=== PATIENT | male | born 1975 | race Caucasian/White ===

== ENCOUNTER → 2021-07-20 09:39 | Outpatient (CLI) | payer BC, SELFPAY ==
--- NOTE | 2021-07-20 | DI.MRI.S_ITS ---
PROCEDURE: MR BRAIN (PITUITARY) WWO CON INDICATIONS: Hypopituitarism TECHNIQUE: Noncontrast sagittal and axial FLAIR, axial gradient echo, axial diffusion and ADC through the brain. Thin-slice sagittal and coronal T1 spin echo, coronal T2 fast spin echo through the pituitary. After the administration contrast, optional dynamic coronal T1 spin echo, thin-slice coronal and sagittal T1 spin echo images through the pituitary fossa; axial T1 spin echo with fat saturation through the brain. COMPARISON: None. FINDINGS: Image quality: Excellent. Pituitary Gland: The pituitary gland demonstrates normal signal and bulk. On the postcontrast imaging, no masses or abnormally enhancing areas are seen. The pituitary stalk and infundibulum have an unremarkable appearance. A normal appearing pituitary bright spot is seen posteriorly on the precontrast sagittal T1-weighted images. The optic chiasm and the ventral forebrain have an unremarkable appearance. CSF Spaces: Ventricles are normal in size and shape. Basal cisterns are patent. No extra-axial fluid collections. Brain: No intracranial bleeds or mass effects. No abnormal intracranial enhancement. Walsh-white matter interface is intact. Diffusion weighted images demonstrate no acute ischemic insults. Brainstem is normal. Normal intravascular flow voids are present. Skull and face: Calvarial marrow is normal in signal. Orbits appear normal. Sinuses: No significant paranasal sinus disease is seen. Moderate fluid can be seen within the mastoid air cells, left worse than right. IMPRESSION: Unremarkable pituitary, without a focal pituitary lesion to suggest pituitary microadenoma. Dictated by: Vince Da Silva M.D. on 07/20/2021 at 10:55 Approved by: Vince Da Silva M.D. on 07/20/2021 at 10:58
== END ==
PROVIDERS: Referring Provider Physician Assistant; Visit Provider Physician Assistant
DX: E29.1 Testicular hypofunction (principal); E23.0 Hypopituitarism
CPT/HCPCS: 70553

== ENCOUNTER → 2022-05-10 09:38 | Outpatient (CLI) | payer BC, SELFPAY ==
--- NOTE | 2022-05-10 09:41 | DI.RAD.S_ITS ---
PROCEDURE: FL BARIUM SWALLOW INDICATIONS: Dysphagia, pharyngoesophageal phase COMPARISON: None. FINDINGS: Function: There is normal esophageal peristalsis. No elicited gastroesophageal reflux. There is normal transit of a calibrated barium tablet through the esophagus into the stomach. Morphology: Air-contrast images demonstrate normal mucosal morphology. Single contrast views show no esophageal strictures, extrinsic mass effects, or diverticula. Limited images of the stomach demonstrate normal appearance. IMPRESSION: No significant abnormality. Dictated by: Yazan Nina M.D. on 05/10/2022 at 10:33 Approved by: Yazan Nina M.D. on 05/10/2022 at 10:34
== END ==
PROVIDERS: Referring Provider Otolaryngology; Visit Provider Otolaryngology
DX: R13.14 Dysphagia, pharyngoesophageal phase (principal)
CPT/HCPCS: 74220

== ENCOUNTER 2022-06-08 06:37 | Day surgery (SDC) | payer BC, SELFPAY ==
--- NOTE | 2022-06-08 | PATH_ITS ---
[facility] Accession Number: [id number] No. of containers..01 Tissue . 01 Material submitted: . colon - TRANSVERSE COLON POLYP . 01 Diagnosis: Transverse Colon, Polyp, Biopsy: Tubular adenoma. MRV 06/10/2022 1800 Local . 01 Electronically signed: . Alyson Niño MD, Pathologist NPI- [id number] . 01 Gross description: . TRANSVERSE COLON POLYP: Received in formalin are multiple fragment(s) of cross, soft tissue measuring 0.1 x 0.1 x 0.1 cm to 0.5 x 0.4 x 0.3 cm submitted entirely in 1 cassette(s) /JESSIKA 06/09/2022 1914 Local . 01 Pathologist provided ICD-10: D12.3 . 01 CPT . 326017 Specimen Comment: A courtesy copy of this report has been sent to [phone] Performed at: 01 [facility] [address] [place] [address], [place], [place] [id number] MD Shayan Narayanan MD Phone: [phone]
[2022-06-08 06:54] VITALS: BP 128/85; PULSE 89; RESP 20; TEMP 36.1; O2SAT 97; BMI 39.0
[2022-06-08] MEDS: LACTATED RINGERS 1,000 ML 200 ML IV (07:02)
--- NOTE | 2022-06-08 07:44 | PM.HP.1 ---
History of Present Illness History of Present Illness Date Patient Seen: 06/08/22 Time Patient Seen: 07:44 Chief complaint: Colonoscopy Narrative: The patient presents for colorectal screening. They have never had any previous examination for such. No personal or family history of colon cancer. On further history denies any recent gastrointestinal symptoms. No nausea, vomiting, abdominal pain, loss of appetite, unexplained weight loss, change in bowel habits, or blood per rectum. [facility] Social History household members: spouse Smoking Status: Former smoker Meds Home Medications and Allergies Home Medications Medication Instructions Recorded Confirmed Type bupropion HCl 150 mg 24 hr tablet, 150 mg PO QAM 06/08/22 06/08/22 History extended release oxybutynin chloride 5 mg tablet 5 mg PO DAILY 06/08/22 06/08/22 History Allergies Allergy/AdvReac Type Severity Reaction Status Date / Time No Known Drug Allergies Allergy Verified 06/08/22 06:50 Exam Vital Signs (past 8 hours): - 06/08/22 06:54 Temperature 97 F L Pulse Rate 89 Respiratory Rate 20 Blood Pressure 128/85 Pulse Oximetry 97 Oxygen Delivery Method Room Air Oxygen Delivery Method Room Air Narrative Exam Narrative: General adult man alert oriented no acute distress Abdomen soft nondistended Assessment & Plan Assessment & Plan narrative: The patient requires colorectal screening and colonoscopy is recommended. Technical details were discussed. Risks, benefits, alternatives explained. Risks including but not limited to myocardial infarction, aspiration, bleeding, pain, missed lesion, incomplete examination, need for further radiographic studies, colonic perforation, and need for major abdominal surgery were discussed. All questions were answered to their satisfaction, and they are in agreement with this plan.
[2022-06-08 08:09] VITALS: BP 127/89; PULSE 90; RESP 14; TEMP 37.1; O2SAT 97
--- NOTE | 2022-06-08 08:11 | PM.OP.COLON ---
Operative Date/Time/Diagnoses Date of procedure: 06/08/22 Time of procedure: 08:11 Pre-op diagnosis: Colorectal screening Post-op diagnosis: other (Colonic polyp x1) Procedure & Clinicians Study performed: Colonoscopy and polypectomy Same procedure as scheduled: Yes Indications: Colorectal screening Surgeon: Damaso Frost Procedure Notes Procedure in detail: The history and physical was performed/updated and the patient is ASA class is 2. The procedure was discussed in detail with the patient. Potential risks complications including infection, bleeding, missed diagnosis, perforation, need for surgery, and were explained. Their questions were answered and informed consent was obtained. Patient was brought to the procedure room and placed standard monitoring equipment. The patient's vital signs were monitored continuously throughout the entire procedure. Prior to starting time-out was performed. The patient was placed in the left lateral recumbent position. Procedural sedation was administered by anesthesia. Examination began with a thorough inspection of the perianal area there was no evidence of fissures, fistulae, external hemorrhoids or cutaneous malignancy. The colonoscopy scope was then placed into the anal canal and was advanced to the cecum, which was identified by the ileocecal valve, the appendiceal orifice and the confluence of the taenia. The scope was then slowly withdrawn examining colon thoroughly in all directions, irrigating it of any residual stool. Within the transverse colon there is a 1 cm raised polyp which was removed with cold snare in its entirety. On retroflexion within the rectum grade 1 hemorrhoids are observed. The patient tolerated the procedure well. They will be discharged once criteria are met. The prep was of good/excellent quality. The withdrawl time was 6 minutes. Specimen(s): other (Transverse colon polyp) Impression: Colonic polyp x1 Post-procedure Plan for aftercare: Colonoscopy follow-up is dependent on pathology findings Disposition: same day surgery
[2022-06-08 08:14] VITALS: BP 126/92; PULSE 85; RESP 16; O2SAT 98
[2022-06-08 08:19] VITALS: BP 126/91; PULSE 77; RESP 16; O2SAT 98
--- NOTE | 2022-06-08 08:20 | SUR.PHASEI ---
Pt awake and alert, talking and joking around. Denies pain and nausea. No complaints voiced. No distress noted.
[2022-06-08 08:24] VITALS: BP 125/90; PULSE 78; RESP 16; TEMP 36.2; O2SAT 97
[2022-06-08 08:30] VITALS: BP 125/88; PULSE 75; RESP 16; O2SAT 97
--- NOTE | 2022-06-08 08:39 | SUR.PHASEII ---
pt states he is ready to go and understands discharge instructions. Pt denies any complaints.
== END 2022-06-08 08:40 | disposition home or self-care (01) ==
PROVIDERS: PCP Physician Assistant; Referring Provider Surgery; Visit Provider Surgery
PROC: 0DJD8ZZ Inspection of Lower Intestinal Tract, Via Natural or Artificial Opening Endoscopic (ICD-10-PCS; CPT 45378; principal; 2022-06-08 07:45)
DX: Z12.11 Encounter for screening for malignant neoplasm of colon (principal); K64.0 First degree hemorrhoids; D12.3 Benign neoplasm of transverse colon
CPT/HCPCS: 45385; J2250; J2704; J3010

== ENCOUNTER → 2023-05-28 11:16 | Outpatient (CLI) | payer BC, SELFPAY ==
--- NOTE | 2023-05-28 | DI.MRI.S_ITS ---
PROCEDURE: MR LUMBAR SPINE WO CON INDICATIONS: Sciatica, left side TECHNIQUE: Noncontrast sagittal T1 spin echo and T2 fast echo, sagittal STIR, and T2 fast spin echo through the lumbar spine. In cases with scoliosis, additional coronal T2 fast spin echo may be performed. COMPARISON: None. FINDINGS: Image quality: Excellent. Alignment and Curvature: There is trace retrolisthesis of L5 on S1. Bone Marrow: Marrow is of normal overall signal. No acute vertebral body compression fractures. Spinal Cord: Conus medullaris terminates at the L1-2 level. Visualized cord demonstrates normal signal and size. Paraspinous Soft Tissues: No paravertebral masses. Discs: Multilevel overall minimal disc desiccation although [id number] L5-S1. T12-L1: Minimal disc bulge without spinal stenosis or foraminal narrowing. L1-L2: Minimal disc bulge without spinal stenosis or foraminal narrowing. Mild epidural lipomatosis. L2-L3: Mild disc bulge with minimal canal narrowing. Facet and ligamentum flavum hypertrophy are present. Minimal epidural lipomatosis. L3-L4: Minimal disc bulge with minimal canal narrowing. Minimal left foraminal narrowing with facet and ligamentum flavum hypertrophy. L4-L5: Mild disc bulge with mild spinal stenosis. No foraminal narrowing. Facet and ligamentum flavum hypertrophy as well as epidural lipomatosis. L5-S1: Mild broad-based disc bulge asymmetrically left lateral/foraminal component. There is moderate narrowing through the left subarticular recess with overall minimal foraminal narrowing. Similar appearance is present on the right. IMPRESSION: Early degenerative changes most prominent L5-S1. Broad-based disc bulge demonstrates bilateral narrowing through the subarticular recess bilaterally. No nerve root flattening. Dictated by: Evette Morataya M.D. on 05/30/2023 at 12:30 Approved by: Evette Morataya M.D. on 05/30/2023 at 12:52
== END ==
LOC: MRI 11:16
PROVIDERS: PCP Physician Assistant; Referring Provider Physician Assistant; Visit Provider Physician Assistant
DX: M51.16 Intervertebral disc disorders with radiculopathy, lumbar region (principal); M51.17 Intervertebral disc disorders with radiculopathy, lumbosacral region; M47.26 Other spondylosis with radiculopathy, lumbar region
CPT/HCPCS: 72148

== ENCOUNTER 2023-09-18 11:30 | Emergency (ER) | payer BC, SELFPAY ==
[2023-09-18 11:37] VITALS: BP 168/102; PULSE 100; RESP 18; TEMP 36.7; O2SAT 99; BMI 36.2
--- NOTE | 2023-09-18 11:46 | ED.NECK ---
HPI - Neck Pain/Injury General Chief Complaint: Neck Pain/Injury Stated Complaint: Pulled muscle left shoulder/neck Time Seen by Provider: 09/18/23 11:36 Mode of arrival: Ambulatory History of Present Illness HPI Narrative: Patient is a 48-year-old male without significant past medical history presenting today with left shoulder pain. He reports it has been ongoing for the last 6 days it started when he lifted a 50 lb suitcase. Holding arm in position of comfort. He has been taking meloxicam and ibuprofen without significant relief he has no numbness tingling or weakness. He does have decreased range of motion definitely reproducible with palpation. He reports that he is pain from the back of his neck down into his shoulder blade. No chest pain shortness of breath or weakness. Been trying ice and heat. He did not fall no other symptoms. Related Data Home Medications Medication Instructions Recorded Confirmed bupropion HCl 150 mg 24 hr tablet, 150 mg PO QAM 06/08/22 06/08/22 extended release oxybutynin chloride 5 mg tablet 5 mg PO DAILY 06/08/22 06/08/22 Previous Rx's Medication Instructions Recorded diazepam 5 mg tablet (Valium) 5 mg PO Q12HR PRN muscle spasm #10 09/18/23 tabs hydrocodone 5 mg-acetaminophen 325 1 tab PO Q6H PRN pain #10 tabs 09/18/23 mg tablet Allergies Allergy/AdvReac Type Severity Reaction Status Date / Time No Known Drug Allergies Allergy Verified 06/08/22 06:50 Patient History Social History household members: spouse Smoking Status: Former smoker Smoking Status: Former smoker alcohol intake frequency: holidays/special occasions only Substance Use Type: does not use Exam Initial Vital Signs Initial Vital Signs: Vital Signs Temperature 98.1 F 09/18/23 11:37 Pulse Rate 100 H 09/18/23 11:37 Respiratory Rate 18 09/18/23 11:37 Blood Pressure 168/102 H 09/18/23 11:37 Pulse Oximetry 99 09/18/23 11:37 Oxygen Delivery Method Room Air 09/18/23 11:37 GENERAL: Well-appearing, well-nourished and in no acute distress. CARDIOVASCULAR: peripheral pulses in tact, cap refill <2 sec RESPIRATORY: No respiratory distress, speaks in full sentences without difficulty EXTREMITIES: Normal range of motion, no clubbing or edema. Neurovascularly intact Left trapezius muscle spasm definitely appreciated tender all along trapezius he is actually able to abduct his arm and shoulder completely but with a lot harder than the right neurovascularly he is intact NEUROLOGICAL: Cranial nerves II through XII grossly intact. Normal gait and speech. SKIN: Warm, dry, no petechiae, no rashes or lesions. Course Orders Ordered: Discontinued Medications Diazepam (Diazepam 5 Mg Tablet) 5 mg PO NOW ONE Stop: 09/18/23 11:56 Last Admin: 09/18/23 12:25 Dose: 5 mg Documented By: JUVE Ketorolac Tromethamine (Ketorolac 30 Mg/Ml Vial) 30 mg IM NOW ONE Stop: 09/18/23 11:56 Last Admin: 09/18/23 12:25 Dose: 30 mg Documented By: JUVE Vital Signs Vital signs: Vital Signs - 8 hr 09/18/23 11:37 09/18/23 12:23 Temperature 98.1 F Pulse Rate 100 H 88 Respiratory Rate 18 Blood Pressure 168/102 H 132/85 Pulse Oximetry 99 98 Oxygen Delivery Method Room Air Room Air MDM - Neck Pain/Injury MDM Narrative Medical decision making narrative: Patient 48-year-old male without significant past medical history presenting today with left shoulder pain. It is musculoskeletal in nature reproducible spasm is appreciated in the trapezius muscle. He is given Toradol and Valium here in the ED. Recommended supportive care along with pain control. Discharge Plan Departure Patient Disposition: Home Clinical Impression: Muscle spasm Instructions: DI for Muscle Spasm Activity Restrictions/Additional Instructions: *You have been diagnosed with muscle spasm *What to do: At this time recommend he increasing activity as tolerated recommend stretching light massage may try [id number] CBD cream or arnica *Continue to take medications as directed Motrin 600 mg every 6 hours OR meloxicam 15 mg once a day [facility] 1 tablet every 6 hours if needed for zidb-dw-zajkhqqs pain Valium 5 mg every 12 hours if needed for muscle spasm *Follow up with your primary care provider in 2-3 days or call [phone] *Return to ER if you should have increasing weakness numbness [or] any new, worsening or concerning symptoms CONTROLLED SUBSTANCE DISCHARGE (Narcotoic/benzodiazepine/Flexeril/Phenergan) 1. You have been prescribed narcotic medications, it does have acetaminophen/Tylenol/paracetamol in it, DO NOT TAKE MORE THAN 4,00mg in 24 hours of Tylenol. TRAMADOL DOES NOT CONTAIN TYLENOL 2. Please understand that we cannot provide further refills of narcotics, benzodiazepines or controlled substances through the ED and her pain management will need to be through your provider. 3. While on these medications you cannot drive or operate heavy machinery. 4. You cannot sign legal documents or perform any duties such as this. 5. As long as you're taking opiate pain medications he should also be taking a stool softener such as Colace, Dulcolax, MiraLAX or prune juice, to help avoid constipation. Prescriptions: New hydrocodone-acetaminophen 5-325 mg tablet 1 tab PO Q6H PRN (Reason: pain) Qty: 10 0RF diazepam [Valium] 5 mg tablet 5 mg PO Q12HR PRN (Reason: muscle spasm) Qty: 10 0RF No Action oxybutynin chloride 5 mg Tablet 5 mg PO DAILY bupropion HCl 150 mg Tablet Extended Release 24 Hr 150 mg PO QAM Referrals: Nery Gillespie PA-C [Primary Care Provider] - Stand Alone Forms: Patient Portal/API
[2023-09-18 12:23] VITALS: BP 132/85; PULSE 88; O2SAT 98
[2023-09-18] MEDS: diazePAM 5 MG TABLET PO (12:25)
[2023-09-18] MEDS: KETOROLAC 30 MG/ML VIAL IM (12:25)
--- NOTE | 2023-09-18 12:37 | PC.NURSE ---
First time meeting pt is at time of d/c. Refer to Dr. Chen notes for assessment.
== END 2023-09-18 12:38 | disposition home or self-care (01) ==
PROVIDERS: Emergency Provider Emergency Medicine; PCP Physician Assistant
DX: M62.830 Muscle spasm of back (principal); M54.2 Cervicalgia
CPT/HCPCS: 96372; 99283; J1885

== ENCOUNTER 2023-09-25 10:10 | Emergency (ER) | payer BC, SELFPAY ==
[2023-09-25 10:21] VITALS: BP 157/103; PULSE 87; RESP 16; TEMP 37; O2SAT 98; BMI 36.2
--- NOTE | 2023-09-25 11:53 | ED_ITS ---
HPI - Extremity Injury (Upper) General Chief Complaint: Extremity Injury, Upper Stated Complaint: Upper left shoulder pain Time Seen by Provider: 09/25/23 11:35 Source: patient Mode of arrival: Ambulatory History of Present Illness HPI narrative: Patient is a 48-year-old male without significant past medical history presenting today with ongoing left shoulder pain. I saw and evaluated him 1 week ago with left shoulder trapezius pain. He was given Valium and [place] he now can only find a position with his arm above his head grabbing a bar that is comfortable. He has severe sharp stabbing pain from his neck down to his upper arm. He reports that his hand is weaker. He says none of the medications are helping he is left-hand dominant and no dropping things Related Data Home Medications Medication Instructions Recorded Confirmed bupropion HCl 150 mg 24 hr tablet, 150 mg PO QAM 06/08/22 06/08/22 extended release oxybutynin chloride 5 mg tablet 5 mg PO DAILY 06/08/22 06/08/22 Previous Rx's Medication Instructions Recorded diazepam 5 mg tablet (Valium) 5 mg PO Q12HR PRN muscle spasm #10 09/18/23 tabs hydrocodone 5 mg-acetaminophen 325 1 tab PO Q6H PRN pain #10 tabs 09/18/23 mg tablet gabapentin 300 mg capsule 300 mg PO BEDTIME #30 caps 09/25/23 oxycodone 5 mg tablet 5 mg PO Q6H PRN pain #14 tabs 09/25/23 prednisone 20 mg tablet 40 mg (2 x 20 mg) PO DAILY #10 tabs 09/25/23 Allergies Allergy/AdvReac Type Severity Reaction Status Date / Time No Known Drug Allergies Allergy Verified 06/08/22 06:50 Patient History Social History household members: spouse Smoking Status: Former smoker Smoking Status: Former smoker alcohol intake frequency: holidays/special occasions only Substance Use Type: does not use Exam Initial Vital Signs Initial Vital Signs: Vital Signs Temperature 98.6 F 09/25/23 10:21 Pulse Rate 87 09/25/23 10:21 Respiratory Rate 16 09/25/23 10:21 Blood Pressure 157/103 H 09/25/23 10:21 Pulse Oximetry 98 09/25/23 10:21 Oxygen Delivery Method Room Air 09/25/23 10:21 GENERAL: Alert 48-year-old male appears in severe distress CARDIOVASCULAR: peripheral pulses in tact, cap refill <2 sec RESPIRATORY: No respiratory distress, speaks in full sentences without difficulty EXTREMITIES: Normal range of motion, no clubbing or edema. Neurovascularly intact Sitting with left arm above head grabbing top of bed. does seem e he does have mild decreased precast molder strength in left head compared to right, sensation intact over deltoid bilaterally distal radial pulse intact NEUROLOGICAL: Cranial nerves II through XII grossly intact. Normal gait and speech. SKIN: Warm, dry, no petechiae, no rashes or lesions. Course Orders Ordered: ED Orders 09/25/23 11:59 CT cervical spine wo con Stat XR shoulder LT min 2V Stat Discontinued Medications Hydromorphone HCl (Hydromorphone 1 Mg Inj) 1 mg SUBCUT NOW ONE Stop: 09/25/23 12:00 Last Admin: 09/25/23 12:17 Dose: 1 mg Documented By: QUEENIE Vital Signs Vital signs: Vital Signs - 8 hr 09/25/23 10:21 09/25/23 13:14 09/25/23 13:14 Temperature 98.6 F Pulse Rate 87 84 Respiratory Rate 16 Blood Pressure 157/103 H 138/91 H Pulse Oximetry 98 96 Oxygen Delivery Method Room Air MDM - Extremity Injury (Upper) Imaging Data CT - cervical spine: Radiologist's Impression: PROCEDURE: CT CERVICAL SPINE WO CON INDICATIONS: left side neck pain with tingling TECHNIQUE: Noncontrast 3 mm thick sections acquired from the skull base to the T4 level. Sagittal and coronal reformats were then constructed. For radiation dose reduction, the following was used: automated exposure control, adjustment of mA and/or kV according to patient size. COMPARISON: None. FINDINGS: Image quality: Excellent. Bones: No fractures or dislocations. Visualized superior ribs are intact. Degenerative changes at C4-C6 are mild with disc space narrowing and osteophytosis. Soft tissues: Prevertebral soft tissues are normal in thickness. No paravertebral hematomas. No apical pneumothoraces. IMPRESSION: No displaced fracture or traumatic subluxation. Dictated by: Grace Luz M.D. on 09/25/2023 at 11:16 Approved by: Grace Luz M.D. on 09/25/2023 at 11:19 Extremity x-ray #1: Radiologist's Impression: PROCEDURE: XR SHOULDER LT MIN 2V INDICATIONS: pain injury TECHNIQUE: 3 views of the shoulder were acquired. COMPARISON: None. FINDINGS: Bones: No fractures or dislocations. No suspicious bony lesions. Visualized ribs appear intact. Soft tissues: No suspicious soft tissue calcifications. IMPRESSION: No acute bony abnormality. Dictated by: Grace Luz M.D. on 09/25/2023 at 11:41 Approved by: Grace Luz M.D. on 09/25/2023 at 11:41 [facility] Narrative Medical decision making narrative: 48-year-old male presenting today with ongoing left shoulder pain numbness tingling is slight left hand weakness. On exam he actually does have mild weakness in his left hand he is left-hand dominant. Imaging has been reviewed he has normal cervical spine is normal shoulder x-ray. He got 1 mg of Dilaudid subcu he is overall feeling significantly better able to put his arm down looks more comfortable. I suspect still muscle spasm and possible nerve impingement however I do recommend outpatient MRI if he continues to have problems Discharge Plan Departure Patient Disposition: Home Clinical Impression: Muscle spasm Instructions: DI for Cervical Radiculopathy, DI for Muscle Spasm Activity Restrictions/Additional Instructions: *You have been diagnosed with spasm versus radiculopathy *What to do: At this time we would continue to do heat and stretching. Pain required outpatient MRI with your primary care provider *Continue to take medications as directed Tylenol 1000 mg every 6 hours for mild moderate pain Gabapentin 300 mg at that time Prednisone 40 mg would today the voiding for 5 days (no ibuprofen while taking this medication) Oxycodone 5-10mg every 6 hours if needed for severe pain (do not combine with [place]) *Follow up with your primary care provider in 2-3 days or call [phone] *Return to ER if you should have increasing pain weakness dropping things or any new, worsening or concerning symptoms CONTROLLED SUBSTANCE DISCHARGE (Narcotoic/benzodiazepine/Flexeril/Phenergan) 1. You have been prescribed narcotic medications, it does have acetaminophen/Tylenol/paracetamol in it, DO NOT TAKE MORE THAN 4,00mg in 24 hours of Tylenol. TRAMADOL DOES NOT CONTAIN TYLENOL 2. Please understand that we cannot provide further refills of narcotics, benzodiazepines or controlled substances through the ED and her pain management will need to be through your provider. 3. While on these medications you cannot drive or operate heavy machinery. 4. You cannot sign legal documents or perform any duties such as this. 5. As long as you're taking opiate pain medications he should also be taking a stool softener such as Colace, Dulcolax, MiraLAX or prune juice, to help avoid constipation. Prescriptions: New oxycodone 5 mg tablet 5 mg PO Q6H PRN (Reason: pain) Qty: 14 0RF prednisone 20 mg tablet 40 mg PO DAILY Qty: 10 0RF gabapentin 300 mg capsule 300 mg PO BEDTIME Qty: 30 0RF No Action oxybutynin chloride 5 mg Tablet 5 mg PO DAILY bupropion HCl 150 mg Tablet Extended Release 24 Hr 150 mg PO QAM hydrocodone-acetaminophen 5-325 mg tablet 1 tab PO Q6H PRN (Reason: pain) Qty: 10 0RF diazepam [Valium] 5 mg tablet 5 mg PO Q12HR PRN (Reason: muscle spasm) Qty: 10 0RF Referrals: Nery Gillespie PA-C [Primary Care Provider] - Stand Alone Forms: Patient Portal/API
--- NOTE | 2023-09-25 11:59 | DI.CT.S_ITS ---
PROCEDURE: CT CERVICAL SPINE WO CON INDICATIONS: left side neck pain with tingling TECHNIQUE: Noncontrast 3 mm thick sections acquired from the skull base to the T4 level. Sagittal and coronal reformats were then constructed. For radiation dose reduction, the following was used: automated exposure control, adjustment of mA and/or kV according to patient size. COMPARISON: None. FINDINGS: Image quality: Excellent. Bones: No fractures or dislocations. Visualized superior ribs are intact. Degenerative changes at C4-C6 are mild with disc space narrowing and osteophytosis. Soft tissues: Prevertebral soft tissues are normal in thickness. No paravertebral hematomas. No apical pneumothoraces. IMPRESSION: No displaced fracture or traumatic subluxation. Dictated by: Grace Luz M.D. on 09/25/2023 at 11:16 Approved by: Grace Luz M.D. on 09/25/2023 at 11:19
--- NOTE | 2023-09-25 11:59 | DI.RAD.S_ITS ---
PROCEDURE: XR SHOULDER LT MIN 2V INDICATIONS: pain injury TECHNIQUE: 3 views of the shoulder were acquired. COMPARISON: None. FINDINGS: Bones: No fractures or dislocations. No suspicious bony lesions. Visualized ribs appear intact. Soft tissues: No suspicious soft tissue calcifications. IMPRESSION: No acute bony abnormality. Dictated by: Grace Luz M.D. on 09/25/2023 at 11:41 Approved by: Grace Luz M.D. on 09/25/2023 at 11:41
[2023-09-25] MEDS: HYDROMORPHONE 1 MG INJ SUBCUT (12:17)
[2023-09-25 13:14] VITALS: BP 138/91; PULSE 84; O2SAT 96
== END 2023-09-25 13:19 | disposition home or self-care (01) ==
PROVIDERS: Emergency Provider Emergency Medicine; PCP Physician Assistant
DX: M62.830 Muscle spasm of back (principal); M54.2 Cervicalgia
CPT/HCPCS: 72125; 73030; 96372; 99283; 99284; J1170

== ENCOUNTER → 2023-10-18 09:17 | Outpatient (CLI) | payer BC, SELFPAY ==
--- NOTE | 2023-10-18 09:19 | DI.MRI.S_ITS ---
PROCEDURE: MR SHOULDER LT WO CON INDICATIONS: SHOULDER PAIN TECHNIQUE: Noncontrast oblique coronal T2 fast spin echo with fat saturation, oblique sagittal T1 spin echo and T2 fast spin echo with fat saturation, axial T1 spin echo and T2 fast spin echo with fat saturation through the shoulder. COMPARISON: [facility], CR, XR SHOULDER LT MIN 2V, 09/25/2023, 12:01. FINDINGS: Image quality: Poor; incomplete fat saturation and decreased signal to noise ratio likely secondary to body habitus. Bones: The bone marrow signal is normal. There is no acute fracture or dislocation. Acromioclavicular joint: Mild osteoarthritis. There is a type 2 acromion. Glenohumeral joint: There is no significant osteoarthritis. There is no significant joint effusion. Labrum: Within the limits of this examination, the labrum is normal. Cartilage: Within the limits of this examination, there is no significant articular cartilage defect. Subacromial-subdeltoid bursa: There is a small amount of fluid in the subacromial-subdeltoid bursa. Rotator cuff: The supraspinatus tendon is intact. The infraspinatus tendon is intact. The subscapularis tendon is intact. The teres minor tendon is intact. Long head of biceps tendon: The long head of the biceps tendon is present within the bicipital groove and intact. Musculature: Muscle bulk is preserved without evidence of denervation or fatty atrophy. Inferior glenohumeral ligaments/Axillary pouch: The axillary pouch is normal in thickness and signal. Coracoclavicular and coracoacromial ligaments: The coracoclavicular and coracoacromial ligaments are normal. Other: None. IMPRESSION: Limited examination. Mild subacromial-subdeltoid bursitis. Otherwise, no MR abnormality of the left shoulder. Dictated by: Vahe Collado M.D. on 10/18/2023 at 16:13 Approved by: Vahe Collado M.D. on 10/18/2023 at 16:20
== END ==
PROVIDERS: PCP Physician Assistant; Referring Provider Physician Assistant; Visit Provider Physician Assistant
DX: M75.52 Bursitis of left shoulder (principal); M25.512 Pain in left shoulder
CPT/HCPCS: 73221

== ENCOUNTER → 2024-05-26 10:58 | Outpatient (CLI) | payer BC, SELFPAY ==
--- NOTE | 2024-05-26 11:01 | DI.CT.S_ITS ---
PROCEDURE: CT LUMBAR SPINE WO CON INDICATIONS: RADICULOPATHY LUMBAR REGION TECHNIQUE: Noncontrast 3 mm thick sections acquired from the T12 level to the sacrum. Sagittal and coronal reformats were constructed. For radiation dose reduction, the following was used: automated exposure control. COMPARISON: None. FINDINGS: Image quality: Excellent. Bones: There is mild straightening of normal lumbar lordosis. No acute vertebral body compression fractures. No suspicious lytic or blastic bony lesions. No pars defects. T12-L1: Degenerative endplate changes and loss of disc height is seen. Broad-based disc bulge. No significant central canal stenosis or neural foraminal narrowing. L1-L2: Degenerative endplate changes. Mild diffuse disc bulge. No significant central canal stenosis or neural foraminal narrowing. L2-L3: Degenerative endplate changes. Diffuse disc bulge and bilateral facet arthrosis. No significant central canal stenosis. Mild bilateral neural foraminal narrowing. L3-L4: Degenerative endplate changes. Broad-based disc bulge and bilateral facet arthrosis with [id number] central canal stenosis and moderate bilateral neural foraminal narrowing. L4-L5: Degenerative endplate changes. Broad-based disc bulge and bilateral facet arthrosis with moderate central canal stenosis, moderate to severe bilateral neural foraminal narrowing. L5-S1: Diffuse disc bulge and bilateral facet arthrosis. No significant central canal stenosis. Moderate to severe bilateral neural foraminal narrowing worse on the left side. Soft tissues: No retroperitoneal masses or hematomas. Visualized aorta is normal in caliber. IMPRESSION: 1. Multilevel spondylitic changes throughout lumbar spine more notably at L3-4 through L5-S1 levels as above. 2. No acute compression fracture or spondylolisthesis. No suspicious bony lesions. No gross paraspinous soft tissue abnormalities. Dictated by: Joel Juares M.D. on 05/27/2024 at 21:09 Approved by: Joel Juares M.D. on 05/27/2024 at 21:32
--- NOTE | 2024-05-26 11:02 | DI.MRI.S_ITS ---
PROCEDURE: MR LUMBAR SPINE WO CON INDICATIONS: RADICULOPATHY LUMBAR REGION TECHNIQUE: Noncontrast sagittal T1 spin echo and T2 fast echo, sagittal STIR, and T2 fast spin echo through the lumbar spine. In cases with scoliosis, additional coronal T2 fast spin echo may be performed. COMPARISON: [facility], MR, MR LUMBAR SPINE WO CON, 05/28/2023, 11:25. [facility], CR, XR LUMBAR SPINE FLEXION EXTENSION, 05/03/2024, 7:56. [facility], CT, CT LUMBAR SPINE WO CON, 05/26/2024, 11:44. FINDINGS: Image quality: Excellent. Alignment and Curvature: There is normal bony alignment. Bone Marrow: Marrow is of normal overall signal. No acute vertebral body compression fractures. Spinal Cord: Conus medullaris terminates at the L1 level. Visualized cord demonstrates normal signal and size. Paraspinous Soft Tissues: No paravertebral masses. Incidental note is made of a retroaortic left renal vein. T12-L1: Mild loss of disc height is seen. Loss of disc signal is seen. Mild generalized disc bulge is seen. Mild bilateral neural foraminal narrowing is seen. Mild central canal narrowing is seen. L1-L2: No significant abnormality is seen. L2-L3: Mild loss of disc height is seen. Loss of disc signal is seen. Mild to moderate disc bulge is seen. There is a superimposed central disc protrusion. Mild facet joint hypertrophy is seen. There is [id number] left-sided and no right-sided neural foraminal narrowing. Mild central canal narrowing is seen. When comparison is made with the prior images, these findings are similar. L3-L4: The disc height is well-preserved. Loss of disc signal is seen at this level. Mild generalized disc bulge is seen. There is a superimposed central disc protrusion. Mild facet joint hypertrophy is seen. There is mild right-sided and [id number] left-sided neural foraminal narrowing. Mild central canal narrowing is seen. When comparison is made with the prior images, these findings are similar. L4-L5: The disc height and disk signal are relatively well-preserved. Moderate generalized disc bulge is seen, which is eccentric to the right. There is a focal annular fissure seen posteriorly. Moderate facet joint hypertrophy is seen. Moderate bilateral neural foraminal narrowing is seen. Moderate central canal narrowing is seen. These imaging findings have progressed compared to the prior study. L5-S1: Mild loss of disc height is seen. Loss of disc signal is seen. Moderate generalized disc bulge is seen. There is a central/left disc extrusion, with minimal superior migration of the disc material. There is a focal annular fissure seen posteriorly. Additional disc protrusions can be seen involving both neural foramina. There is at least moderate right-sided and moderate to severe left-sided neural foraminal narrowing. There is a degree of compression seen upon the exiting nerve roots. Mild to moderate central canal narrowing is seen. There is slight progression compared to the prior. IMPRESSION: Multiple levels of lumbar spine degenerative change can be seen, including a mild disc extrusion at the L5-S1 level. Degenerative changes are overall mildly progressed compared to the prior. Dictated by: Vince Da Silva M.D. on 05/28/2024 at 12:42 Approved by: Vince Da Silva M.D. on 05/28/2024 at 12:48
== END ==
LOC: CT 11:00
PROVIDERS: PCP Physician Assistant; Referring Provider Orthopaedic Surgery Orthopaedic Surgery of the Spine; Visit Provider Orthopaedic Surgery Orthopaedic Surgery of the Spine
DX: M47.26 Other spondylosis with radiculopathy, lumbar region (principal); M47.27 Other spondylosis with radiculopathy, lumbosacral region; M51.17 Intervertebral disc disorders with radiculopathy, lumbosacral region
CPT/HCPCS: 72131; 72148